=== PATIENT | male | born 2000 | race Caucasian/White ===

== ENCOUNTER 2019-07-05 11:46 | Emergency (ER) | payer SELFPAY ==
[~2019-07-05] VITALS: Ht 180.3 cm; Wt 108.9 kg
[2019-07-05 11:50] VITALS: BP 140/89
--- NOTE | 2019-07-05 11:55 | NUR ---
18 Y/O MALE FROM HOME C/O LT EAR DISCOMFORT X 3 DAYS. PT STATES HIS EAR HAS FELT "CLOGGED" X 3 DAYS WITH INCREASED DIFFICULTY HEARING OUT OF LT EAR TODAY. PT STATES HE TRIED TO USE EAR WAX REMOVER TODAY WITH NO RELIEF. DENIES PAIN. DENIES DRAINAGE FROM EARS. SITTING UPRIGHT AWAKE AND ALERT, VSS MEDHX: DENIES ALLERGIES: NKA
--- NOTE | 2019-07-05 12:03 | NUR ---
DR BRADLEY AT BEDSIDE EXAMINING PT
[2019-07-05 12:29] VITALS: BP 140/89
--- NOTE | 2019-07-05 12:29 | NUR ---
Patient discharged with v/s stable. Written and verbal after care instructions given and explained. Patient alert, oriented and verbalized understanding of instructions. Ambulatory with steady gait. All questions addressed prior to discharge. ID band removed. Patient advised to follow up with PMD. Rx of IBUPROFEN 600MG AND AUGMENTIN 875MG given. Patient educated on indication of medication including possible reaction and side effects. Opportunity to ask questions provided and answered.
== END 2019-07-05 12:29 | disposition home or self-care (01) ==
LOC: MED 11:46
DX: H61.22 Impacted cerumen, left ear (principal); H72.92 Unspecified perforation of tympanic membrane, left ear
CPT/HCPCS: 99283

== ENCOUNTER 2020-03-10 20:49 | Emergency (ER) | payer MEDICAID ==
[~2020-03-10] VITALS: Ht 180.3 cm; Wt 113.4 kg
[2020-03-10 21:00] VITALS: BP 141/90
--- NOTE | 2020-03-10 21:03 | NUR ---
TO LOBBY A/W BED AMBULATORY
[2020-03-10 21:15] VITALS: BP 141/90
--- NOTE | 2020-03-10 21:40 | NUR ---
SEEN AND EXAMINED BY ERMD WITH ORDERS CARRIED OUT
[2020-03-10] MEDS ORDERED: LIDOCAINE/PRILOCAINE 2.5% 5 GM TUBE TP ONE (22:40)
[2020-03-10] MEDS ORDERED: LIDOCAINE MPF 2% 100 MG/5 ML VIAL INJ ONE (22:40)
[2020-03-10] MEDS ORDERED: LIDOCAINE MPF 1% 5 ML ONE ×2 (22:52→23:49)
--- NOTE | 2020-03-10 23:00 | NUR ---
PT TAKEN TO CHAIR A
[2020-03-11] MEDS ORDERED: LIDOCAINE 2% 1000 MG/50 ML VIAL INJ ONE (00:02)
[2020-03-11] MEDS ORDERED: KETAMINE 500 MG/5 ML VIAL IM ONE ×2 (00:15)
--- NOTE | 2020-03-11 01:33 | NUR ---
Patient discharged with v/s stable. Written and verbal after care instructions given and explained. Patient alert, oriented and verbalized understanding of instructions. Ambulatory with to car. All questions addressed prior to discharge. ID band removed. Patient advised to follow up with PMD. Rx of MOTRIN AND KEFLEX given. Patient educated on indication of medication including possible reaction and side effects. Opportunity to ask questions provided and answered.
== END 2020-03-11 01:33 | disposition home or self-care (01) ==
LOC: MED 20:49
DX: L60.0 Ingrowing nail (principal)
CPT/HCPCS: 11730; 11732; 96372; 99284; J2001